=== PATIENT | female | born 1950 | race Caucasian/White ===

== ENCOUNTER 2018-03-05 09:19 | Emergency (ER) | payer MEDICARE, OTHER ==
[2018-03-05 10:02] VITALS: BP 174/131
--- NOTE | 2018-03-05 11:16 | EDM.PDOC ---
ED HPI GENERAL MEDICAL PROBLEM - General Chief Complaint: Laceration Stated Complaint: HEAD LAC Time Seen by Provider: 03/05/18 10:29 Source of Information: Reports: Patient, Family (), RN Notes Reviewed History Limitations: Reports: Physical Impairment (somewhat forgetful, likely early dementia) - History of Present Illness INITIAL COMMENTS - FREE TEXT/NARRATIVE: The patient states that she has a history of MS. She states that she went down into her basement to bring something up around 08:00 this morning, and on her way up the steps, she lost her balance and fell backwards. She states that she struck her buttocks and the back of her head. She states that she was not knocked unconscious. She states that she had a slight headache at the time, but that it has since resolved. She denies having any nausea or confusion. She presents with an abrasion and laceration to her posterior midline scalp, and low back and buttock pain. The patient also notes that she had some blood on the toilet paper when she wiped after urinating, following the fall. The patient's PCP is Dr. Rod Reyes. 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: Fibroids Musculoskeletal History: Reports: Osteoporosis Neurological History: Reports: MS Psychiatric History: Reports: Depression - Past Surgical History HEENT Surgical History: Reports: Oral Surgery (wisdom teeth extraction) GI Surgical History: Reports: Appendectomy Female Surgical History: Reports: Hysterectomy Musculoskeletal Surgical History: Reports: Shoulder Surgery (right, arthroscopic ) Oncologic Surgical History: Reports: Lumpectomy (left, x 2, both benign) Social & Family History - Family History Other Oncologic Family History: metastatic melanoma - Tobacco Use Smoking Status *Q: Never Smoker - Alcohol Use Alcohol Use History: Yes Alcohol Use Frequency: Rarely - Recreational Drug Use Recreational Drug Use: No - Living Situation & Occupation Living situation: Reports: , with Spouse Occupation: Retired ED ROS GENERAL - Review of Systems Review Of Systems: ROS reveals no pertinent complaints other than HPI. ED EXAM, GENERAL - Physical Exam Exam: See Below Exam Limited By: No Limitations General Appearance: Alert, WD/WN, No Apparent Distress Eye Exam: Bilateral Eye: EOMI (Disconjugate gaze - right deviated laterally), PERRL Ears: Normal External Exam, Normal Canal, Normal TMs Nose: Normal Inspection, Normal Mucosa, No Blood Throat/Mouth: Normal Inspection, Normal Lips, Normal Voice, No Airway Compromise Head: Normocephalic, Other (There is an approximately 3 cm stellate partial- thickness laceration within an approximately 3 cm abrasion to the midline posterior superior scalp, with a small associated scalp hematoma. The abrasion edges are bleeding mildly.) Neck: Normal Inspection, Full Range of Motion Respiratory/Chest: No Respiratory Distress, Lungs Clear, Normal Breath Sounds, No Accessory Muscle Use Cardiovascular: Normal Peripheral Pulses, Regular Rate, Rhythm, No Gallop, No JVD, No Murmur, No Rub Peripheral Pulses: 4+: Radial (L), Radial (R) GI/Abdominal: Normal Bowel Sounds, Soft, Non-Tender, No Organomegaly, No Distention, No Abnormal Bruit, No Mass (Female) Exam: Normal External Exam, Other (No visible blood seen on examination of the external genitalia, including the perineum) Rectal (Female) Exam: Deferred Back Exam: Normal Inspection, Full Range of Motion, Other (Tenderness over the coccyx only. No tenderness to palpation of the lumbar spinous processes or sacrum) Extremities: Normal Inspection, Normal Range of Motion, No Pedal Edema, Normal Capillary Refill Neurological: Alert, Oriented, No Motor/Sensory Deficits, Confused (mildly) Psychiatric: Normal Affect Skin Exam: Warm, Dry, Intact, Normal Color, No Rash Course - Vital Signs Last Recorded V/S: Last Vital Signs Temp 36.1 C 03/05/18 09:45 Pulse 57 L 03/05/18 09:45 Resp 18 03/05/18 09:45 BP 174/131 H 03/05/18 09:45 Pulse Ox 100 03/05/18 09:45 - Orders/Labs/Meds Labs: Laboratory Tests 03/05/18 Range/Units 10:55 Urine Color Yellow (Yellow) Urine Appearance Clear (Clear) Urine pH 7.0 (5.0-8.0) Ur Specific [place] 1.020 (1.005-1.030) Urine Protein Negative (Negative) Urine Glucose (UA) Negative (Negative) Urine Ketones Negative (Negative) Urine Occult Blood 3+ H (Negative) Urine Nitrite Positive H (Negative) Urine Bilirubin Negative (Negative) Urine Urobilinogen 0.2 (0.2-1.0) Ur Leukocyte Esterase 1+ H (Negative) Urine RBC 10-20 H (0-5) /hpf Urine WBC 5-10 H (0-5) /hpf Ur Epithelial Cells Not seen (0-5) /hpf Ur Squamous Epith Cells 5-10 H (0-5) /hpf Urine Bacteria Few (FEW) /hpf Urine Mucus Few (FEW) /hpf - Re-Assessments/Exams Free Text/Narrative Re-Assessment/Exam: 03/05/18 11:13 The patient's believes that the blood that the patient saw when she wiped herself after urinating earlier was likely from blood on her hand. He recalled that she had blood from her head, and that she had not cleaned her hand off before she urinated. With the exception of a modestly disconjugate gaze, initial generalized tremulousness, and some difficulty in following commands from a cognitive standpoint, the patient's neurologic examination is grossly normal. There was no loss of consciousness. The patient states that she initially had a slight headache, but that it has since resolved, and at no point did she have nausea, confusion, or perseveration of questions. Clinically, she does not have a concussion. Nevertheless, given her age, I offered a CT scan of the head, but neither the patient or believe it is necessary. With respect to the abrasion and laceration on the patient's scalp, she does not need sutures, as it is only partial thickness, but I would like to dress it. Unfortunately, it is in such a location that we can't adhere a dressing by wrapping gauze around the head. We will be forced to shave the area around the abrasion in order to apply a dressing to the wound. 03/05/18 11:52 Two-view sacrum and coccyx radiographs is read by Dr. Khan as: 1. Nondisplaced coccyx fracture. The patient's urinalysis is remarkable for 1+ leukocyte esterase and 5-10 WBCs, nitrate positive but with few bacteria, and 3+ occult blood with 10-20 RBCs, but also 5-10 squamous epithelial cells. This urinalysis has some findings concerning for a UTI, but it is also contaminated. As the patient is not having any dysuria, compared treatment with antibiotics is not indicated, however, I have ordered a urine culture. 03/05/18 13:01 Emilee SALINAS was able to fashion a dressing going under the patient's chin and both in front of and behind her ears, that appears to be stable. We did not need to shave the patient's head in order to affix the dressing. The patient feels well enough to go home. Departure - Departure Time of Disposition: 13:02 Disposition: Home, Self-Care 01 Condition: Fair Clinical Impression: Fall down stairs, Scalp laceration, Scalp abrasion, Fractured coccyx - Discharge Information *PRESCRIPTION DRUG MONITORING PROGRAM REVIEWED*: Not Applicable *COPY OF PRESCRIPTION DRUG MONITORING REPORT IN PATIENT BHARATI: Not Applicable Instructions: Laceration Care, Adult, Abrasion, [id number] Referrals: Rod Reyes MD [Primary Care Provider] - Forms: ED Department Discharge Additional Instructions: You were seen in the emergency room after falling backwards down some steps, landing on your buttocks and hitting your head. Workup in the ER included a urinalysis and x-rays of your coccyx. Your urinalysis has some bacteria and white blood cells in it, but it is also a contaminated sample. A sample of your urine has been sent for culture. The x-rays of your coccyx confirm that you have a nondisplaced coccyx fracture. Unfortunately, there are no treatments for a coccyx fracture - it will have to heal on its own. We recommend that you take [id number] ibuprofen, 2-3 tablets (400-600 mg) every 8 hours, with food, as needed for discomfort. Keep the abrasion on your head clean with ordinary shampoo and water, when you bathe. Pat dry, then apply a thin smear of bacitracin ointment before applying a fresh nonstick dressing, daily. Follow-up with your Physician, Dr. Rod Reyes, this week. If any other problems, please do not hesitate to return to the ER.
--- NOTE | 2018-03-05 11:49 | CR ---
Sacrum and coccyx: AP and lateral views of the sacrum and coccyx were obtained. Comparison: No prior study. Fracture is identified within the coccyx. No displacement is appreciated. Sacroiliac joints appear within normal limits. Impression: 1. Nondisplaced coccyx fracture. Diagnostic code #3
== END 2018-03-05 13:15 | disposition home or self-care (01) ==
LOC: JD.ED 09:19
DX: S32.2XXA Fracture of coccyx, initial encounter for closed fracture (principal); S01.01XA Laceration without foreign body of scalp, initial encounter; E78.00 Pure hypercholesterolemia, unspecified; I10 Essential (primary) hypertension; W10.9XXA Fall (on) (from) unspecified stairs and steps, initial encounter
CPT/HCPCS: 72220; 72220-26; 81001; 87086; 87088; 87186; 99284

== ENCOUNTER → 2021-09-30 | Day surgery (SDC) | payer BC, OTHER ==
[~2021-09-30] MED LIST: Cefuroxime 10 MG/ML SYRINGE EYERT SCH; Lidocaine 1% PF 2 ML SDV INJECT SCH; Pilocarpine 4% Ophth Soln 15 ML Bot EYERT SCH
[2021-09-30] MEDS: Polymyxin B/Trimethoprim 10 ML Bottle EYERT SCH ×3 (12:23→14:10)
[2021-09-30] MEDS: Brimonidine 0.2% Ophth Soln 5 ML Bottle EYERT SCH ×3 (12:28→14:10)
[2021-09-30] MEDS: Phenylephrine 2.5% Ophth Soln 2 ML Bot EYERT SCH ×5 (12:36→13:47)
[2021-09-30] MEDS: Tropicamide 1% Ophth Soln 15 ML Bottle EYERT SCH ×4 (12:39→13:20)
[2021-09-30] MEDS: Tetracaine HCl/PF 0.5% 4 ML Bottle EYEBOTH SCH ×4 (13:31→13:55)
[2021-09-30 14:19] VITALS: BP 156/71; PULSE 52
== END ==
LOC: JD.SDS 11:28
PROVIDERS: ATTEND Ophthalmology
DX: H25.813 Combined forms of age-related cataract, bilateral (principal); G35 Multiple sclerosis; H47.013 Ischemic optic neuropathy, bilateral; H16.103 Unspecified superficial keratitis, bilateral; H16.223 Keratoconjunctivitis sicca, not specified as Sjogren's, bilateral; H50.111 Monocular exotropia, right eye; I10 Essential (primary) hypertension; E78.00 Pure hypercholesterolemia, unspecified; F32.A Depression, unspecified; M81.0 Age-related osteoporosis without current pathological fracture; Z98.890 Other specified postprocedural states; Z90.710 Acquired absence of both cervix and uterus; Z79.02 Long term (current) use of antithrombotics/antiplatelets; Z79.899 Other long term (current) drug therapy; Z88.1 Allergy status to other antibiotic agents; Z88.8 Allergy status to other drugs, medicaments and biological substances; Z90.49 Acquired absence of other specified parts of digestive tract
CPT/HCPCS: 66984; J0697; C1780

== ENCOUNTER → 2021-11-04 | Day surgery (SDC) | payer BC ==
[~2021-11-04] MED LIST changes: +Cefuroxime 10 MG/ML SYRINGE EYELF SCH; -Cefuroxime 10 MG/ML SYRINGE EYERT SCH; +Pilocarpine 4% Ophth Soln 15 ML Bot EYELF SCH; -Pilocarpine 4% Ophth Soln 15 ML Bot EYERT SCH
[2021-11-04] MEDS: Polymyxin B/Trimethoprim 10 ML Bottle EYELF SCH ×3 (12:37→14:04)
[2021-11-04] MEDS: Brimonidine 0.2% Ophth Soln 5 ML Bottle EYELF SCH ×3 (12:46→14:04)
[2021-11-04] MEDS: Phenylephrine 2.5% Ophth Soln 2 ML Bot EYELF SCH ×5 (12:59→13:43)
[2021-11-04] MEDS: Tropicamide 1% Ophth Soln 15 ML Bottle EYELF SCH ×4 (13:07→13:35)
[2021-11-04] MEDS: Tetracaine HCl/PF 0.5% 4 ML Bottle EYEBOTH SCH ×4 (13:37→13:54)
[2021-11-04 15:28] VITALS: BP 105/87; PULSE 87
== END ==
LOC: JD.SDS 12:33
PROVIDERS: ATTEND Ophthalmology
DX: H25.812 Combined forms of age-related cataract, left eye (principal); E78.00 Pure hypercholesterolemia, unspecified; I10 Essential (primary) hypertension; M81.0 Age-related osteoporosis without current pathological fracture; Z98.890 Other specified postprocedural states; Z88.8 Allergy status to other drugs, medicaments and biological substances; Z90.49 Acquired absence of other specified parts of digestive tract
CPT/HCPCS: 66984; J0697; C1780

== ENCOUNTER 2022-07-30 08:35 | Emergency (ER) | payer MEDICARE, OTHER ==
[2022-07-30] MEDS ORDERED: Sodium Chloride 0.9% 1,000 ML IV ONE ×2 (09:06→14:23)
[2022-07-30] MEDS ORDERED: Dicyclomine 10 MG Cap PO ONE (09:06)
[2022-07-30] MEDS ORDERED: Ondansetron 4 MG/2 ML SDV IVPUSH ONE (09:09)
[2022-07-30 09:18] LABS: BASOPHILS ABSOLUTE AUTO 0.01 K/mm3 (0.01-0.08); BASOPHILS PERCENT AUTO 0.1 % (0.1-1.2); EOSINOPHILS PERCENT AUTO 0 (0.7-5.8); HEMATOCRIT 44.1 % (34.1-44.9); HEMOGLOBIN 14.5 gm/dl (11.2-15.7); IMMATURE GRAN ABSOLUTE AUTO 0.04 K/mm3 (0.00-0.10); IMMATURE GRAN PERCENT AUTO 0.3 % (<=1.0); LYMPHOCYTES ABSOLUTE AUTO 0.65 K/mm3 (1.18-3.74); LYMPHOCYTES PERCENT AUTO 4.4 % (19.3-51.7); MEAN CORPUSCULAR HEMOGLOBIN 29.8 pg (25.6-32.2); MEAN CORPUSCULAR HGB CONC 32.9 g/dl (32.2-35.5); MEAN CORPUSCULAR VOLUME 90.7 fl (79.4-94.8); MONOCYTES ABSOLUTE AUTO 0.84 K/mm3 (0.24-0.36); MONOCYTES PERCENT AUTO 5.7 % (4.7-12.5); NEUTROPHILS ABSOLUTE AUTO 13.12 K/mm3 (1.56-6.13); NEUTROPHILS PERCENT AUTO 89.5 % (34.0-71.1); PLATELET COUNT,PLT 206 K/mm3 (182-369); RED BLOOD CELL COUNT 4.86 M/mm3 (3.98-5.22); WHITE BLOOD CELL COUNT,WBC 14.66 K/mm3 (3.98-10.04)
[2022-07-30] MEDS ORDERED: Hyoscyamine 0.125 MG Tab.SL SL ONE (09:18)
[2022-07-30] MEDS: Sodium Chloride 0.9% 10 ML Syringe FLUSH PRN ×2 (09:25→14:46)
[2022-07-30 09:40] LABS: A/G RATIO 1.1 (1-2); ALBUMIN 4.2 g/dl (3.4-5.0); ANION GAP 14.1 (5-15); BILIRUBIN TOTAL 0.6 mg/dL (0.2-1.0); BUN/CREATININE RATIO 17.1 (14-18); C-REACTIVE PROTEIN 2.7 mg/dL (<1.0); CALCIUM 9.7 mg/dL (8.5-10.1); CREATININE 1.4 mg/dL (0.55-1.02); EST CRCL DRUG DOSING (CG) 31.37 mL/min; MAGNESIUM 1.8 mg/dL (1.8-2.4); POTASSIUM,K 4.1 mEq/L (3.5-5.1); PROTEIN TOTAL,TP 8.2 g/dl (6.4-8.2)
[2022-07-30] MEDS ORDERED: HYDROmorphone 0.5 MG/0.5 ML Syringe IVPUSH ONE ×3 (09:49→15:50)
[2022-07-30 10:15] LABS: APPEARANCE,URINE CLOUDY (Clear); BILIRUBIN,URINE NEGATIVE (Negative); COLOR,URINE YELLOW (Yellow); GLUCOSE,URINE NEGATIVE (Negative); KETONES,URINE NEGATIVE (Negative); LEUKOCYTE ESTERASE,URINE TRACE (Negative); NITRITE,URINE POSITIVE (Negative); OCCULT BLOOD,URINE 1+ (Negative); PROTEIN,URINE 3+ (Negative); UROBILINOGEN,URINE 0.2 (0.2-1.0)
[2022-07-30 10:53] LABS: BACTERIA,URINE MANY /hpf (FEW); CALCIUM OXALATE CRYSTALS,URINE RARE; MUCUS,URINE MODERATE /hpf (FEW); SQUAMOUS EPITHELIAL CELLS,UR 0-5 /hpf (0-5); WBC CLUMPS,URINE RARE /hpf (NOT SEEN)
[2022-07-30] MEDS ORDERED: cefTRIAXone 1 GM in Sodium Chloride 0.9% 100 ML IV ONE ×2 (11:19→15:18)
[2022-07-30] MEDS ORDERED: Iopamidol 612 MG/ML 100 ML Bottle IVPUSH ONE (14:44)
[2022-07-30 16:31] VITALS: BP 156/66; PULSE 88
== END 2022-07-30 16:13 ==
LOC: EDUNIT# → JD.ED 08:35 → EDBD 08:35 → JD.ED 16:13
DX: N13.2 Hydronephrosis with renal and ureteral calculous obstruction (principal); E78.00 Pure hypercholesterolemia, unspecified; I10 Essential (primary) hypertension; Z88.8 Allergy status to other drugs, medicaments and biological substances; Z79.899 Other long term (current) drug therapy
CPT/HCPCS: 36415; 71045; 74177; 76705; 80053; 81001; 82977; 83690; 83735; 85025; 86140; 87086; 87088; 87186; 96361; 96365; 96366; 96375; 96376; 99285; A9270; J0696; J1170; J2405; J3490; J7030; Q9967

== ENCOUNTER 2023-09-07 20:29 | Emergency (ER) | payer MEDICARE, OTHER ==
[2023-09-07] MEDS: Ibuprofen 600 MG Tab PO ONE (21:29)
[2023-09-07 21:31] VITALS: BP 167/87; PULSE 64
== END 2023-09-08 | disposition home or self-care (01) ==
LOC: JD.ED 20:29
DX: M79.602 Pain in left arm (principal); I10 Essential (primary) hypertension; E78.00 Pure hypercholesterolemia, unspecified; Z88.8 Allergy status to other drugs, medicaments and biological substances; Z79.899 Other long term (current) drug therapy; W01.0XXA Fall on same level from slipping, tripping and stumbling without subsequent striking against object, initial encounter; Y93.89 Activity, other specified
CPT/HCPCS: 73060; 99283; A9270

== ENCOUNTER 2024-09-08 19:41 | Emergency (ER) | payer MEDICARE, OTHER ==
[2024-09-08] MEDS ORDERED: Sodium Chloride 0.9% 10 ML Syringe FLUSH PRN (20:14)
[2024-09-08] MEDS: Propofol 200 MG/20 ML SDV IVPUSH ONE (21:12)
[2024-09-08] MEDS: Propofol 200 MG/20 ML SDV ONE (21:32)
[2024-09-08 23:55] VITALS: BP 120/80; PULSE 65
== END 2024-09-08 22:30 | disposition home or self-care (01) ==
LOC: JD.ED 19:41
DX: S43.015A Anterior dislocation of left humerus, initial encounter (principal); I10 Essential (primary) hypertension; E78.00 Pure hypercholesterolemia, unspecified; Z79.899 Other long term (current) drug therapy; Z88.8 Allergy status to other drugs, medicaments and biological substances; Z86.16 Personal history of COVID-19; X58.XXXA Exposure to other specified factors, initial encounter
CPT/HCPCS: 23650; 73030; 96374; 99152; 99283; J1171; J2704; 23655; 99284